=== PATIENT | male | born 1995 | race Caucasian/White ===

== ENCOUNTER 2016-07-29 10:26 | Emergency (ER) | payer MEDICAID ==
[2016-07-29] MEDS ORDERED: OPTIRAY 350 100 ML VIAL HMH IV ONE (10:27)
[2016-07-29] MEDS ORDERED: SODIUM CHLORIDE 0.9% 2,000 ML ONE (11:18)
[2016-07-29] MEDS ORDERED: ONDANSETRON 4 MG VIAL ONE (11:34)
== END 2016-07-29 14:33 | disposition home or self-care (01) ==
LOC: ER 10:26
DX: R11.2 Nausea with vomiting, unspecified (principal); R10.13 Epigastric pain; E10.9 Type 1 diabetes mellitus without complications; Z79.899 Other long term (current) drug therapy; I10 Essential (primary) hypertension; K44.9 Diaphragmatic hernia without obstruction or gangrene
CPT/HCPCS: 36415; 74177; 80053; 81001; 83690; 85025; 96361; 96374

== ENCOUNTER 2016-08-06 06:38 | Inpatient (IN) | payer MEDICAID ==
[~2016-08-06] VITALS: Ht 182.9 cm; Wt 68.0 kg
[2016-08-06] VITALS (44 sets, daily range): BP systolic 100–158; RESP 9–23; TEMP 97.5–98.3; Ht 182.9 cm; Wt 68.0 kg
[2016-08-06] MEDS ORDERED: ONDANSETRON 4 MG VIAL ONE ×2 (07:33→08:44)
[2016-08-06] MEDS ORDERED: KETOROLAC 30 MG/ML VIAL ONE (07:33)
[2016-08-06] MEDS ORDERED: SODIUM CHLORIDE 0.9% 1,000 ML ONE ×3 (07:34→11:01)
[2016-08-06] MEDS ORDERED: LIDOCAINE 2% VISC 15 ML UDC ONE (08:44)
[2016-08-06] MEDS ORDERED: ALU/MAG/SIM 30 ML UDC ONE (08:44)
[2016-08-06] MEDS ORDERED: MORPHINE 4 MG/ML SYR ONE (10:03)
[2016-08-06] MEDS ORDERED: PROMETHAZINE 25 MG/ML VIAL ONE (10:03)
[2016-08-06] MEDS ORDERED: DEXTROSE 50% SYRINGE 50 ML IV PRN (10:45)
[2016-08-06] MEDS ORDERED: SODIUM CHLORIDE 0.9% 1,000 ML IV SCH (10:45)
[2016-08-06] MEDS ORDERED: INSULIN DRIP 1 UNIT/ML 100 ML IV SCH (10:45)
[2016-08-06] MEDS ORDERED: SODIUM CHLOR 0.9% W/KCL 20MEQ 1,000 ML IV SCH (11:50)
[2016-08-06] MEDS: ONDANSETRON 4 MG VIAL IV PUSH PRN ×2 (11:52→15:57)
[2016-08-06] MEDS ORDERED: *PINK BRACELET XX ONE (12:05)
[2016-08-06] MEDS ORDERED: MORPHINE 2 MG/ML SYR IV ONE ×2 (13:10→17:55)
[2016-08-06] MEDS ORDERED: MORPHINE 2 MG/ML SYR ONE (13:13)
[2016-08-06] MEDS ORDERED: PROPOFOL 50ML PER ML IV ONE (13:57)
[2016-08-06] MEDS ORDERED: LIDOCAINE 2% SYR 5 ML IV ONE (13:57)
[2016-08-06] MEDS: PANTOPRAZOLE 40 MG TAB PO SCH (16:07)
[2016-08-06] MEDS: D5-NS W/KCL 20MEQ/L 1,000 ML IV SCH (18:56)
[2016-08-06] MEDS ORDERED: MISSING DOSE XX ONE (19:10)
[2016-08-06] MEDS: PROMETHAZINE 25 MG/ML VIAL IV PRN (19:12)
[2016-08-06] MEDS: *HOME MEDS KEPT IN PHARMACY XX SCH (19:19)
[2016-08-06] MEDS: METOCLOPRAMIDE 5 MG TAB PO PRN (19:46)
[2016-08-06] MEDS ORDERED: ACETAMINOPHEN 325 MG TAB PO PRN (20:00)
[2016-08-06] MEDS: MORPHINE 2 MG/ML SYR IV PRN (22:25)
[2016-08-07] VITALS (17 sets, daily range): BP systolic 101–141; RESP 15–19; TEMP 97.8–98.4
[2016-08-07] MEDS: POTASSIUM CHLORIDE PREMIX 10 MEQ in PART FILL PIGGYBACK 1 EA IV SCH ×4 (00:19→03:28)
[2016-08-07] MEDS: ONDANSETRON 4 MG VIAL IV PUSH PRN (01:29)
[2016-08-07] MEDS ORDERED: MISSING DOSE XX ONE (02:20)
[2016-08-07] MEDS: D5-NS W/KCL 20MEQ/L 1,000 ML IV SCH ×2 (02:25→10:15)
[2016-08-07] MEDS: PANTOPRAZOLE 40 MG TAB PO SCH ×2 (06:02→15:44)
[2016-08-07] MEDS: PROMETHAZINE 25 MG/ML VIAL IV PRN (06:20)
[2016-08-07] MEDS: *HOME MEDS KEPT IN PHARMACY XX SCH ×2 (08:00→19:02)
[2016-08-07] MEDS: ENOXAPARIN 40 MG/0.4 ML SYR SUBQ SCH (08:58)
[2016-08-07] MEDS ORDERED: GLUCAGON 1 MG VIAL IM PRN (10:15)
[2016-08-07] MEDS ORDERED: DEXTROSE 50% SYRINGE 50 ML IV PRN (10:15)
[2016-08-07] MEDS: LEVEMIR INSULIN SUBQ SCH ×2 (10:38→20:00)
[2016-08-07] MEDS: LACT RINGERS 1,000 ML IV SCH (14:02)
[2016-08-07] MEDS: MORPHINE 2 MG/ML SYR IV PRN (14:02)
[2016-08-08 04:11] VITALS: BP_SYST 143; RESP 18; TEMP 97.5
[2016-08-08] MEDS: LACT RINGERS 1,000 ML IV SCH (06:35)
[2016-08-08] MEDS: PANTOPRAZOLE 40 MG TAB PO SCH ×2 (06:35→15:25)
[2016-08-08 07:51] VITALS: BP_SYST 146; RESP 18; TEMP 98
[2016-08-08] MEDS: *HOME MEDS KEPT IN PHARMACY XX SCH ×2 (08:00→20:00)
[2016-08-08] MEDS: LEVEMIR INSULIN SUBQ SCH ×2 (09:05→21:08)
[2016-08-08] MEDS: METOCLOPRAMIDE 5 MG TAB PO PRN (09:06)
[2016-08-08] MEDS: ENOXAPARIN 40 MG/0.4 ML SYR SUBQ SCH (09:07)
[2016-08-08 11:00] VITALS: BP_SYST 139; RESP 18; TEMP 98
[2016-08-08 15:02] VITALS: BP_SYST 134; RESP 18; TEMP 97.5
[2016-08-08 20:03] VITALS: BP_SYST 141; RESP 20; TEMP 98
[2016-08-08 22:39] VITALS: BP_SYST 126; RESP 18; TEMP 98.3
[2016-08-09 04:27] VITALS: BP_SYST 148; RESP 18; TEMP 97.5
[2016-08-09] MEDS: PANTOPRAZOLE 40 MG TAB PO SCH ×2 (06:29→16:20)
[2016-08-09] MEDS: *HOME MEDS KEPT IN PHARMACY XX SCH ×2 (08:00→20:00)
[2016-08-09 08:04] VITALS: BP_SYST 134; RESP 18; TEMP 98.1
[2016-08-09] MEDS: LEVEMIR INSULIN SUBQ SCH ×2 (09:18→20:58)
[2016-08-09] MEDS: ENOXAPARIN 40 MG/0.4 ML SYR SUBQ SCH (09:19)
[2016-08-09 11:41] VITALS: BP_SYST 125; RESP 18; TEMP 97.8
[2016-08-09 15:46] VITALS: BP_SYST 132; RESP 18; TEMP 98.2
[2016-08-09 19:26] VITALS: BP_SYST 146; RESP 20; TEMP 98.1
[2016-08-09 22:54] VITALS: BP_SYST 140; RESP 18; TEMP 98
[2016-08-10 02:38] VITALS: BP_SYST 121; RESP 20; TEMP 97.8
[2016-08-10] MEDS: PANTOPRAZOLE 40 MG TAB PO SCH ×2 (06:22→15:43)
[2016-08-10 07:07] VITALS: BP_SYST 142; RESP 18; TEMP 97.8
[2016-08-10] MEDS: *HOME MEDS KEPT IN PHARMACY XX SCH ×2 (08:00→20:00)
[2016-08-10] MEDS: ENOXAPARIN 40 MG/0.4 ML SYR SUBQ SCH (08:52)
[2016-08-10] MEDS: LEVEMIR INSULIN SUBQ SCH ×2 (08:53→21:27)
[2016-08-10] MEDS ORDERED: MISSING DOSE XX ONE ×3 (09:20→16:35)
[2016-08-10 11:44] VITALS: BP_SYST 130; RESP 18; TEMP 97.5
[2016-08-10] MEDS ORDERED: BISACODYL EC 5 MG TAB PO ONE (12:00)
[2016-08-10] MEDS ORDERED: PEG/E-LYTE 4,000 ML BTL PO ONE ×2 (13:00→17:45)
[2016-08-10 16:29] VITALS: BP_SYST 143; RESP 18; TEMP 98
[2016-08-10] MEDS: ONDANSETRON 4 MG VIAL IV PUSH PRN (16:33)
[2016-08-10] MEDS: METOCLOPRAMIDE 5 MG TAB PO PRN (17:41)
[2016-08-10 19:30] VITALS: BP_SYST 150; RESP 18; TEMP 97.7
[2016-08-10] MEDS ORDERED: SALINE FLUSH 10 ML FLUSH PRN (21:50)
[2016-08-10 23:13] VITALS: BP_SYST 145; RESP 18; TEMP 98.3
[2016-08-11] VITALS (11 sets, daily range): BP systolic 90–140; RESP 8–25; TEMP 97.4–98.1
[2016-08-11] MEDS: ONDANSETRON 4 MG VIAL IV PUSH PRN (00:17)
[2016-08-11] MEDS: PANTOPRAZOLE 40 MG TAB PO SCH (05:40)
[2016-08-11] MEDS ORDERED: SODIUM CHLORIDE 0.9% FLUSH BAG 500 ML IV SCH (06:00)
[2016-08-11] MEDS: *HOME MEDS KEPT IN PHARMACY XX SCH ×2 (07:36→14:20)
[2016-08-11] MEDS: LEVEMIR INSULIN SUBQ SCH (07:37)
[2016-08-11] MEDS: ENOXAPARIN 40 MG/0.4 ML SYR SUBQ SCH (07:37)
[2016-08-11] MEDS ORDERED: SALINE FLUSH 10 ML FLUSH SCH (08:00)
== END 2016-08-11 14:31 | disposition home or self-care (01) | DRG 639 ==
LOC: ENRESERVTM → ENRESERVDT → ER 06:38 → ENPENDDIS 11:05 → EMR 11:05 → CCU 11:41 → 4NT 08-07 13:40
PROVIDERS: ADMIT Internal Medicine; ATTEND Internal Medicine
PROC: 0DJD8ZZ Inspection of Lower Intestinal Tract, Via Natural or Artificial Opening Endoscopic (ICD-10-PCS; principal; 2016-08-11 07:45)
DX: E10.10 Type 1 diabetes mellitus with ketoacidosis without coma (principal); K31.84 Gastroparesis; I10 Essential (primary) hypertension; K52.9 Noninfective gastroenteritis and colitis, unspecified; R16.0 Hepatomegaly, not elsewhere classified; Z91.19 Patient's noncompliance with other medical treatment and regimen; Z82.49 Family history of ischemic heart disease and other diseases of the circulatory system
CPT/HCPCS: 36600; 74000; 74177; 80048; 80051; 80053; 80307; 80329; 81001; 82009; 82330; 82550; 82803; 82947; 83605; 83690; 83930; 84443; 85025; 87804; 96361; 96365; 96375; 96376; 99232; 99233; 99238; 99291